=== PATIENT | female | born 1975 | race Caucasian/White ===

== ENCOUNTER 2018-03-19 09:14 | Outpatient (CLI) | payer OTHER ==
--- NOTE | 2018-03-19 10:59 | Ultrasound Report ---
Procedure Date: 03/19/2018 Accession Number: [id number] / [id number] Procedure: US - Pelvic w/Transvaginal CPT Code: FULL RESULT: EXAM: PELVIC ULTRASOUND EXAM DATE: 03/19/2018 10:31 AM. CLINICAL HISTORY: DYSMENORRHEA. LMP 02/03/2018 COMPARISON: 06/25/2011. TECHNIQUE: Realtime transabdominal pelvic scan performed to identify the uterus and adnexa and as an overview of other pelvic structures, followed by transvaginal scan to provide greater detail of the uterus and adnexa, with static image documentation. FINDINGS: Uterus: 9.8 x 4.7 x 5.7 cm, volume 137 cc. Anteverted position. Normal overall size and echotexture. Masses: None. Endometrium: 16.4 mm. 3 x 2 x 4 mm echogenic focus.. Cervix: Small amount of fluid.. Right Ovary: 2.8 x 1.9 x 2.5 cm, volume 6.9 cc. Normal echotexture and blood flow. 1.7 x 1.6 x 1.7 cm cyst. Left Ovary: 2.8 x 1.6 x 1.6 cm, volume 3.7 cc. Normal echotexture and blood flow. Free Fluid: None. Other: None. IMPRESSION: Negative pelvic ultrasound. [facility]
== END 2018-03-19 09:15 | disposition home or self-care (01) ==
LOC: DI 09:14
PROVIDERS: ATTEND Physician Assistant Medical
DX: N94.6 Dysmenorrhea, unspecified (principal)
CPT/HCPCS: 76830; 76856